=== PATIENT | male | born 1960 | race Hispanic/Latino ===

== ENCOUNTER 2020-09-29 16:01 | Inpatient (IN) | payer OTHER, SELFPAY ==
[2020-09-29] MEDS ORDERED: Dextrose 5% in Water 1,000 ML IV PRN (20:34)
[2020-09-29] MEDS ORDERED: Dextrose 50% Abboject 50 ML SYRINGE SLOW IVP PRN (20:34)
[2020-09-29] MEDS ORDERED: Ondansetron ODT 4 MG TAB SL PRN (21:00)
[2020-09-29] MEDS ORDERED: Ondansetron PF 4 MG/2 ML Vial IVP PRN ×2 (21:00→21:03)
[2020-09-29] MEDS ORDERED: Acetaminophen 325 MG TAB PO PRN ×2 (21:00→21:03)
[2020-09-29] MEDS ORDERED: Ondansetron ODT 4 MG TAB PO PRN (21:03)
[2020-09-29] MEDS ORDERED: Acetaminophen 650 MG Suppository PR PRN (21:03)
[2020-09-29] MEDS ORDERED: Sodium Chloride 0.9% 1,000 ML IV SCH ×2 (21:15)
[2020-09-29] MEDS: Sodium Chloride 0.9% 1,000 ML IV SCH ×2 (22:28→23:48)
[2020-09-29 23:17] VITALS: BMI 20.2
[2020-09-30] MEDS ORDERED: VANCOMYCIN 1.25 GM/250 ML BAG 1.25 GM in Premix Bag 1 BAG IVPB SCH (01:00)
[2020-09-30 02:56] LABS: SARS-CoV-2 NAA Rapid Test Not Detected (NotDetected)
[2020-09-30] MEDS ORDERED: Piperacillin/Tazobactam 3.375 GM in Sodium Chloride 0.9% 100 ML IVPB SCH (06:00)
[2020-09-30 07:49] LABS: #Eosinphils 0.1 thou/uL (0.0-0.7); #Lymphocytes 1.1 thou/uL (1.20-3.40); #Monocytes 0.7 thou/uL (0.11-0.59); #Neutrophils 7.5 thou/uL (1.40-6.50); %Basophils 0.1 % (0.0-1.0); %Eosinophils 0.6 % (0.0-10.0); %Lymphocytes 11.5 % (21.0-51.0); %Monocytes 7.3 % (0.0-10.0); %Neutrophils 80.4 % (42.0-75.0); Hemoglobin 12.2 g/dL (14.0-18.0); Mean Corpuscular Hemoglobin 28.8 pg (27.0-31.0); Mean Corpuscular Volume 89.9 fL (78.0-98.0); Mean Platelet Volume 8.6 fL (7.4-10.4); Platelet Count 236 thou/uL (130-400); RBC Distribution Width 11.4 % (11.5-14.5); Red Blood Cell (RBC) Count 4.23 mill/uL (4.70-6.10); White Blood Cell (WBC) Count 9.3 thou/uL (4.8-10.8)
[2020-09-30 08:00] LABS: Hemoglobin A1c Greater than 14.0 % (4.0-6.0)
[2020-09-30 08:01] LABS: ALT (SGPT) 9 U/L (8-55); AST (SGOT) 15 U/L (5-34); Albumin 2.8 g/dL (3.5-5.0); Alkaline Phosphatase 132 U/L (40-110); Anion Gap 19 mmol/L (10-20); BUN (Urea Nitrogen) 12 mg/dL (8.4-25.7); Bilirubin, Total 0.2 mg/dL (0.2-1.2); Calc. Creatinine Clearance 81 mL/min (70-130); Carbon Dioxide 14 mmol/L (22-29); Cardiac Risk 3.5 (Less than 4.5); Chloride 103 mmol/L (98-107); Cholesterol 117 mg/dl (< 200 Desired); Globulin 3.3 g/dL (2.4-3.5); Glucose 219 mg/dL (70-105); HDL Cholesterol 33 mg/dL (>60 Neg Risk); LDL Cholesterol, Calculated 63 mg/dL; Potassium 4.2 mmol/L (3.5-5.1); Protein, Total 6.1 g/dL (6.0-8.3); Sodium 132 mmol/L (136-145); Triglycerides 106 mg/dL (Less than 150)
[2020-09-30] MEDS: Enoxaparin Sodium 40 MG/0.4 ML SYRINGE SC SCH (08:29)
[2020-09-30] MEDS ORDERED: traMADol HCl 50 MG TAB PO PRN (09:42)
[2020-09-30] MEDS ORDERED: Iopamidol 370 76% 50 ML VIAL FS ONE (11:56)
[2020-09-30] MEDS ORDERED: Lidocaine 1% (PF) 30 ML VIAL ONE (13:11)
[2020-09-30] MEDS ORDERED: Heparin 10,000 UNITS/ 10 ML VIAL ONE (13:45)
[2020-09-30] MEDS: Vancomycin HCl 750 MG in Sodium Chloride 0.9% 250 ML 250 ML IVPB SCH ×2 (15:15→23:17)
[2020-09-30] MEDS ORDERED: Vancomycin 1 GM in Premix Bag 1 BAG IVPB SCH (15:30)
[2020-09-30] MEDS: Cefepime 2 GM in Sodium Chloride 0.9% 100 ML IVPB SCH (21:00)
[2020-09-30] MEDS: Lantus 1000 UNITS/10 ML VIAL SC SCH (21:00)
[2020-09-30] MEDS: HumaLOG 300 UNITS/3 ML VIAL SC PRN (21:01)
[2020-10-01] MEDS: HumaLOG 300 UNITS/3 ML VIAL SC PRN ×4 (05:53→20:10)
[2020-10-01 06:27] LABS: #Eosinphils 0.1 thou/uL (0.0-0.7); #Lymphocytes 1.9 thou/uL (1.20-3.40); #Monocytes 1.2 thou/uL (0.11-0.59); #Neutrophils 7.3 thou/uL (1.40-6.50); %Eosinophils 0.7 % (0.0-10.0); %Lymphocytes 18.3 % (21.0-51.0); %Monocytes 11.2 % (0.0-10.0); %Neutrophils 69.8 % (42.0-75.0); Hemoglobin 11.6 g/dL (14.0-18.0); Mean Corpuscular HGB CONC 33.4 g/dL (32.0-36.0); Mean Corpuscular Hemoglobin 29.2 pg (27.0-31.0); Mean Corpuscular Volume 87.5 fL (78.0-98.0); Mean Platelet Volume 6.5 fL (7.4-10.4); Platelet Count 325 thou/uL (130-400); RBC Distribution Width 11.2 % (11.5-14.5); Red Blood Cell (RBC) Count 3.98 mill/uL (4.70-6.10); White Blood Cell (WBC) Count 10.5 thou/uL (4.8-10.8)
[2020-10-01 06:48] LABS: Anion Gap 13 mmol/L (10-20); BUN (Urea Nitrogen) 12 mg/dL (8.4-25.7); Calc. Creatinine Clearance 79 mL/min (70-130); Calcium 8.4 mg/dL (7.8-10.44); Carbon Dioxide 21 mmol/L (22-29); Chloride 101 mmol/L (98-107); Glucose 245 mg/dL (70-105); Potassium 3.6 mmol/L (3.5-5.1); Sodium 131 mmol/L (136-145)
[2020-10-01] MEDS: Enoxaparin Sodium 40 MG/0.4 ML SYRINGE SC SCH (08:47)
[2020-10-01] MEDS: Cefepime 2 GM in Sodium Chloride 0.9% 100 ML IVPB SCH ×2 (08:48→20:08)
[2020-10-01] MEDS: Lantus 1000 UNITS/10 ML VIAL SC SCH ×2 (08:51→20:09)
[2020-10-01 12:24] LABS: Vancomycin, Trough 9.6 ug/mL
[2020-10-01] MEDS: Vancomycin HCl 750 MG in Sodium Chloride 0.9% 250 ML 250 ML IVPB SCH (12:53)
[2020-10-01] MEDS: VANCOMYCIN 1.25 GM/250 ML BAG 1.25 GM in Premix Bag 1 BAG IVPB SCH (13:26)
[2020-10-02] MEDS: VANCOMYCIN 1.25 GM/250 ML BAG 1.25 GM in Premix Bag 1 BAG IVPB SCH ×2 (01:05→12:31)
[2020-10-02] MEDS: HumaLOG 300 UNITS/3 ML VIAL SC PRN ×4 (05:26→20:30)
[2020-10-02 06:03] LABS: #Eosinphils 0.1 thou/uL (0.0-0.7); #Lymphocytes 2.1 thou/uL (1.20-3.40); #Monocytes 1.1 thou/uL (0.11-0.59); #Neutrophils 6.5 thou/uL (1.40-6.50); %Basophils 0.1 % (0.0-1.0); %Eosinophils 0.7 % (0.0-10.0); %Lymphocytes 21.1 % (21.0-51.0); %Monocytes 11.5 % (0.0-10.0); %Neutrophils 66.5 % (42.0-75.0); Hemoglobin 11.6 g/dL (14.0-18.0); Mean Corpuscular Hemoglobin 28.8 pg (27.0-31.0); Mean Corpuscular Volume 87.4 fL (78.0-98.0); Mean Platelet Volume 6.5 fL (7.4-10.4); Platelet Count 334 thou/uL (130-400); RBC Distribution Width 11.4 % (11.5-14.5); Red Blood Cell (RBC) Count 4.02 mill/uL (4.70-6.10); White Blood Cell (WBC) Count 9.7 thou/uL (4.8-10.8)
[2020-10-02 06:07] LABS: INR-International Normal Ratio 0.9; Prothrombin Time 12.8 sec (12.0-14.7)
[2020-10-02 06:22] LABS: Anion Gap 12 mmol/L (10-20); BUN (Urea Nitrogen) 9 mg/dL (8.4-25.7); CRP (Inflammatory) 8.31 mg/dL (= or < 0.5); Calc. Creatinine Clearance 92 mL/min (70-130); Calcium 8.7 mg/dL (7.8-10.44); Carbon Dioxide 24 mmol/L (22-29); Chloride 103 mmol/L (98-107); Glucose 150 mg/dL (70-105); Potassium 3.3 mmol/L (3.5-5.1); Sodium 136 mmol/L (136-145)
[2020-10-02] MEDS ORDERED: Potassium Chloride 20 MEQ TAB PO SCH (07:30)
[2020-10-02] MEDS: Enoxaparin Sodium 40 MG/0.4 ML SYRINGE SC SCH (08:44)
[2020-10-02] MEDS: Cefepime 2 GM in Sodium Chloride 0.9% 100 ML IVPB SCH ×2 (08:44→20:29)
[2020-10-02] MEDS: Lantus 1000 UNITS/10 ML VIAL SC SCH (20:29)
[2020-10-03 00:40] LABS: Vancomycin, Trough 14.2 ug/mL
[2020-10-03] MEDS: Vancomycin 1.5 GRAM/300 ML BAG 1.5 GM in Premix Bag 1 BAG IVPB SCH ×2 (01:09→13:10)
[2020-10-03] MEDS ORDERED: Fentanyl 100 MCG/2 ML VIAL ONE (06:21)
[2020-10-03 06:53] LABS: Anion Gap 13 mmol/L (10-20); BUN (Urea Nitrogen) 10 mg/dL (8.4-25.7); Calc. Creatinine Clearance 90 mL/min (70-130); Calcium 8.7 mg/dL (7.8-10.44); Carbon Dioxide 23 mmol/L (22-29); Chloride 104 mmol/L (98-107); Glucose 111 mg/dL (70-105); Magnesium 1.7 mg/dL (1.6-2.6); Potassium 3.8 mmol/L (3.5-5.1); Sodium 136 mmol/L (136-145)
[2020-10-03] MEDS ORDERED: PROPOFOL 200 MG/20 ML VIAL ONE (07:35)
[2020-10-03] MEDS ORDERED: ePHEDrine Sulfate 50 MG/10 ML VIAL ONE (07:35)
[2020-10-03] MEDS ORDERED: Lidocaine 1% PF 5 ML VIAL ONE (07:35)
[2020-10-03] MEDS ORDERED: Ondansetron HCl/PF 4 MG/2 ML Vial IVP PRN (08:19)
[2020-10-03] MEDS ORDERED: Promethazine HCl 25 MG/ML VIAL IM PRN (08:19)
[2020-10-03] MEDS ORDERED: Promethazine HCl 25 MG/ML VIAL SLOW IVP PRN (08:19)
[2020-10-03] MEDS: Cefepime 2 GM in Sodium Chloride 0.9% 100 ML IVPB SCH ×2 (09:25→21:02)
[2020-10-03] MEDS: tiZANidine HCl 4 MG TAB PO SCH ×2 (11:26→21:02)
[2020-10-03] MEDS: HYDROcodone/Acetaminophen 5/325 mg Tablet PO PRN (11:26)
[2020-10-03] MEDS: Lidocaine 5% Patch TD SCH (12:19)
[2020-10-03] MEDS: Sodium Chloride 0.9% 1,000 ML IV SCH ×2 (13:10→16:48)
[2020-10-03] MEDS: HumaLOG 300 UNITS/3 ML VIAL SC PRN ×2 (16:54→21:14)
[2020-10-03] MEDS ORDERED: Polyethylene Glycol 3350 17 GM Packet PO PRN (18:41)
[2020-10-03] MEDS: metFORMIN 500 MG TAB PO SCH (21:02)
[2020-10-03] MEDS: Transdermal Patch Removal TOP SCH (21:05)
[2020-10-03] MEDS: Senokot S 8.6-50 MG TAB PO PRN (21:13)
[2020-10-03] MEDS: Lantus 1000 UNITS/10 ML VIAL SC SCH (21:14)
[2020-10-04] MEDS: Vancomycin 1.5 GRAM/300 ML BAG 1.5 GM in Premix Bag 1 BAG IVPB SCH ×2 (01:28→14:12)
[2020-10-04] MEDS: Sodium Chloride 0.9% 1,000 ML IV SCH ×3 (05:21→21:01)
[2020-10-04 07:10] LABS: #Eosinphils 0.1 thou/uL (0.0-0.7); #Lymphocytes 1.7 thou/uL (1.20-3.40); #Monocytes 0.8 thou/uL (0.11-0.59); #Neutrophils 5.5 thou/uL (1.40-6.50); %Basophils 0.1 % (0.0-1.0); %Eosinophils 1.7 % (0.0-10.0); %Lymphocytes 20.9 % (21.0-51.0); %Monocytes 9.8 % (0.0-10.0); %Neutrophils 67.5 % (42.0-75.0); Hemoglobin 10.7 g/dL (14.0-18.0); Mean Corpuscular HGB CONC 32.6 g/dL (32.0-36.0); Mean Corpuscular Hemoglobin 28.7 pg (27.0-31.0); Mean Platelet Volume 7.6 fL (7.4-10.4); Platelet Count 322 thou/uL (130-400); RBC Distribution Width 11.4 % (11.5-14.5); Red Blood Cell (RBC) Count 3.72 mill/uL (4.70-6.10); White Blood Cell (WBC) Count 8.1 thou/uL (4.8-10.8)
[2020-10-04 07:27] LABS: Anion Gap 13 mmol/L (10-20); BUN (Urea Nitrogen) 12 mg/dL (8.4-25.7); CRP (Inflammatory) 6.26 mg/dL (= or < 0.5); Calc. Creatinine Clearance 96 mL/min (70-130); Calcium 8.6 mg/dL (7.8-10.44); Carbon Dioxide 21 mmol/L (22-29); Chloride 105 mmol/L (98-107); Glucose 86 mg/dL (70-105); Potassium 4.1 mmol/L (3.5-5.1); Sodium 135 mmol/L (136-145)
[2020-10-04] MEDS: Cefepime 2 GM in Sodium Chloride 0.9% 100 ML IVPB SCH ×2 (07:59→20:57)
[2020-10-04] MEDS: tiZANidine HCl 4 MG TAB PO SCH ×2 (07:59→20:56)
[2020-10-04] MEDS: metFORMIN 500 MG TAB PO SCH ×2 (07:59→20:57)
[2020-10-04] MEDS: Lidocaine 5% Patch TD SCH (14:12)
[2020-10-04] MEDS: HumaLOG 300 UNITS/3 ML VIAL SC PRN (16:13)
[2020-10-04] MEDS: HYDROcodone/Acetaminophen 5/325 mg Tablet PO PRN (20:56)
[2020-10-04] MEDS: Transdermal Patch Removal TOP SCH (21:00)
[2020-10-04] MEDS: Lantus 1000 UNITS/10 ML VIAL SC SCH (21:02)
[2020-10-05] MEDS: Vancomycin 1.5 GRAM/300 ML BAG 1.5 GM in Premix Bag 1 BAG IVPB SCH ×2 (00:37→12:58)
[2020-10-05] MEDS: HumaLOG 300 UNITS/3 ML VIAL SC PRN ×4 (05:28→20:35)
[2020-10-05] MEDS: Cefepime 2 GM in Sodium Chloride 0.9% 100 ML IVPB SCH ×2 (08:25→20:30)
[2020-10-05] MEDS: Senokot S 8.6-50 MG TAB PO PRN ×2 (08:25→20:31)
[2020-10-05] MEDS: metFORMIN 500 MG TAB PO SCH ×2 (08:25→20:31)
[2020-10-05] MEDS: Lidocaine 5% Patch TD SCH (08:26)
[2020-10-05] MEDS: tiZANidine HCl 4 MG TAB PO SCH ×2 (08:26→20:32)
[2020-10-05] MEDS: Sodium Chloride 0.9% 1,000 ML IV SCH ×2 (08:26→20:30)
[2020-10-05 12:36] LABS: Vancomycin, Trough 20.7 ug/mL
[2020-10-05] MEDS: HYDROcodone/Acetaminophen 5/325 mg Tablet PO PRN (20:31)
[2020-10-05] MEDS: Transdermal Patch Removal TOP SCH (20:32)
[2020-10-05] MEDS: Lantus 1000 UNITS/10 ML VIAL SC SCH (20:34)
[2020-10-06] MEDS: Vancomycin 1.5 GRAM/300 ML BAG 1.5 GM in Premix Bag 1 BAG IVPB SCH ×2 (00:16→13:57)
[2020-10-06] MEDS: Sodium Chloride 0.9% 1,000 ML IV SCH ×2 (05:31→18:59)
[2020-10-06] MEDS: Cefepime 2 GM in Sodium Chloride 0.9% 100 ML IVPB SCH (09:13)
[2020-10-06] MEDS: Lidocaine 5% Patch TD SCH (09:13)
[2020-10-06] MEDS: tiZANidine HCl 4 MG TAB PO SCH (09:14)
[2020-10-06] MEDS: metFORMIN 500 MG TAB PO SCH (09:14)
[2020-10-06] MEDS: HumaLOG 300 UNITS/3 ML VIAL SC PRN (09:17)
[2020-10-06 16:28] VITALS: BP 165/84; TEMP 98.4
== END 2020-10-06 20:40 | disposition home or self-care (01) | DRG 854 ==
LOC: T4-A 20:27 → OBSVTOIN 20:34
PROVIDERS: ADMIT Internal Medicine; ATTEND Family Medicine
PROC: 047Q3ZZ Dilation of Left Anterior Tibial Artery, Percutaneous Approach (ICD-10-PCS; 2020-09-29)
PROC: B41D1ZZ Fluoroscopy of Aorta and Bilateral Lower Extremity Arteries using Low Osmolar Contrast (ICD-10-PCS; 2020-09-29)
PROC: 0Y6N0ZB Detachment at Left Foot, Partial 2nd Ray, Open Approach (ICD-10-PCS; principal; 2020-10-03)
PROC: 0Y6N0Z9 Detachment at Left Foot, Partial 1st Ray, Open Approach (ICD-10-PCS; 2020-10-03)
PROC: 0Y6N0ZC Detachment at Left Foot, Partial 3rd Ray, Open Approach (ICD-10-PCS; 2020-10-03)
PROC: 0Y6N0ZD Detachment at Left Foot, Partial 4th Ray, Open Approach (ICD-10-PCS; 2020-10-03)
PROC: 0Y6N0ZF Detachment at Left Foot, Partial 5th Ray, Open Approach (ICD-10-PCS; 2020-10-03)
DX: A40.1 Sepsis due to streptococcus, group B (principal); E11.52 Type 2 diabetes mellitus with diabetic peripheral angiopathy with gangrene; L03.116 Cellulitis of left lower limb; I70.262 Atherosclerosis of native arteries of extremities with gangrene, left leg; Z20.822 Contact with and (suspected) exposure to COVID-19; E11.65 Type 2 diabetes mellitus with hyperglycemia; E11.628 Type 2 diabetes mellitus with other skin complications; E78.5 Hyperlipidemia, unspecified; E11.42 Type 2 diabetes mellitus with diabetic polyneuropathy; Z89.412 Acquired absence of left great toe; Z89.611 Acquired absence of right leg above knee; Z79.84 Long term (current) use of oral hypoglycemic drugs; Z83.3 Family history of diabetes mellitus; Z79.899 Other long term (current) drug therapy
CPT/HCPCS: 0240U; 36415; 36416; 37228; 75774; 76942; 80048; 80053; 80061; 80202; 83036; 83735; 85025; 85347; 85610; 85652; 86140; 87040; 88305; 93926; J0692; J1644; J1650; J1815; J2001; J2543; J2704; J3010; J3370; J3490; J7050; Q9967

== ENCOUNTER 2021-01-31 18:54 | Inpatient (IN) | payer OTHER ==
[2021-01-31 20:54] LABS: #Basophils 0.1 thou/uL (0.0-0.2); #Eosinphils 0.1 thou/uL (0.0-0.7); #Lymphocytes 1.6 thou/uL (1.20-3.40); #Monocytes 1.1 thou/uL (0.11-0.59); %Basophils 0.4 % (0.0-1.0); %Eosinophils 0.5 % (0.0-10.0); %Lymphocytes 9.6 % (21.0-51.0); %Monocytes 6.4 % (0.0-10.0); %Neutrophils 83.1 % (42.0-75.0); Hemoglobin 13.1 g/dL (14.0-18.0); Mean Corpuscular HGB CONC 33.7 g/dL (32.0-36.0); Platelet Count 338 thou/uL (130-400); RBC Distribution Width 13.2 % (11.5-14.5); Red Blood Cell (RBC) Count 4.52 mill/uL (4.70-6.10); White Blood Cell (WBC) Count 16.8 thou/uL (4.8-10.8)
[2021-01-31 21:21] LABS: ALT (SGPT) 11 U/L (8-55); AST (SGOT) 19 U/L (5-34); Albumin 3.3 g/dL (3.5-5.0); Alkaline Phosphatase 165 U/L (40-110); Anion Gap 18 mmol/L (10-20); BUN (Urea Nitrogen) 19 mg/dL (8.4-25.7); Bilirubin, Total 0.2 mg/dL (0.2-1.2); Calc. Creatinine Clearance 0 mL/min (70-130); Calcium 9.3 mg/dL (7.8-10.44); Carbon Dioxide 22 mmol/L (22-29); Chloride 92 mmol/L (98-107); Globulin 4.4 g/dL (2.4-3.5); Glucose 439 mg/dL (70-105); Protein, Total 7.7 g/dL (6.0-8.3); Sodium 127 mmol/L (136-145)
[2021-01-31] MEDS ORDERED: Piperacillin/Tazobactam 3.375 GM VIAL ONE (21:36)
[2021-01-31] MEDS ORDERED: VANCOMYCIN 1.75 GM/350 ML BAG 1.75 GM in Premix Bag 1 BAG IVPB SCH (22:45)
[2021-01-31 23:07] LABS: SARS-CoV-2 NAA Rapid Test Not Detected (NotDetected)
[2021-01-31] MEDS ORDERED: Acetaminophen 325 MG TAB PO PRN (23:30)
[2021-01-31] MEDS ORDERED: Ondansetron PF 4 MG/2 ML Vial IVP PRN (23:30)
[2021-01-31] MEDS ORDERED: Ondansetron ODT 4 MG TAB SL PRN (23:30)
[2021-01-31 23:55] VITALS: BMI 24.5
[2021-01-31] MEDS ORDERED: Vancomycin 1 GM in Premix Bag 1 BAG IVPB SCH (23:59)
[2021-02-01] MEDS: Sodium Chloride 0.9% 1,000 ML IV SCH ×2 (00:42→06:31)
[2021-02-01] MEDS ORDERED: Dextrose 5% in Water 1,000 ML IV PRN (01:26)
[2021-02-01] MEDS ORDERED: Dextrose 50% Abboject 50 ML SYRINGE SLOW IVP PRN (01:26)
[2021-02-01] MEDS: HumaLOG 300 UNITS/3 ML VIAL SC PRN ×3 (01:52→22:23)
[2021-02-01] MEDS ORDERED: Piperacillin/Tazobactam 3.375 GM in Sodium Chloride 0.9% 100 ML IVPB SCH ×2 (02:00→06:00)
[2021-02-01] MEDS ORDERED: Calcium Carbonate 500 MG ChewTAB PO PRN (07:28)
[2021-02-01] MEDS ORDERED: Senokot S 8.6-50 MG TAB PO PRN (07:28)
[2021-02-01] MEDS ORDERED: Acetaminophen 325 MG TAB PO PRN (07:28)
[2021-02-01] MEDS ORDERED: Bisacodyl 5 MG TAB PO PRN (07:28)
[2021-02-01] MEDS ORDERED: Ondansetron ODT 4 MG TAB PO PRN (07:28)
[2021-02-01] MEDS ORDERED: Ondansetron PF 4 MG/2 ML Vial IVP PRN ×2 (07:28→23:30)
[2021-02-01] MEDS ORDERED: Guaifenesin DM 100-10/5 ML UDCUP PO PRN (07:28)
[2021-02-01] MEDS ORDERED: HYDROcodone/Acetaminophen 5/325 mg Tablet PO PRN (07:28)
[2021-02-01] MEDS ORDERED: Hydrocerin (Eucerin) Cream 120 gm Jar TOP PRN (07:30)
[2021-02-01] MEDS ORDERED: Loratadine 10 MG TAB PO PRN (07:30)
[2021-02-01] MEDS ORDERED: hydrALAZINE 20 MG/ML VIAL SLOW IVP PRN (07:30)
[2021-02-01] MEDS ORDERED: Cepastat Lozenges 1 LOZ PO PRN (07:30)
[2021-02-01] MEDS ORDERED: Sodium Chloride 0.65% Nasal 44 ML BOT EA NARE PRN (07:30)
[2021-02-01] MEDS ORDERED: Enoxaparin Sodium 40 MG/0.4 ML SYRINGE SC SCH (09:00)
[2021-02-01] MEDS: Famotidine 20 MG TAB PO SCH ×2 (10:58→20:45)
[2021-02-01] MEDS ORDERED: Sodium Chloride 0.9% 1,000 ML IV SCH ×2 (12:00→20:30)
[2021-02-01 14:12] LABS: Bacteria/HPF None Seen HPF (None Seen); Bilirubin Negative (Negative); Blood, Urine Negative (Negative); Clarity Clear (Clear); Glucose, Urine (Dipstick) Greater than 1000 mg/dL (Negative); Ketone, Urine 40 mg/dL (Negative); Leukocyte Negative Leu/uL (Negative); Nitrite Negative (Negative); Protein, Urine (Dipstick) 30 mg/dL (Neg-Trace); Specific Gravity, Urine 1.032 (1.002-1.036); Squamous Epithelial None Seen HPF (0-3); Urobilinogen Normal mg/dL (Less than 2); WBC/HPF 0-3 HPF (0-3); pH, Urine 5.5 (5.0-9.0)
[2021-02-01 14:19] LABS: Sperm/HPF 4+ HPF (None Seen)
[2021-02-01] MEDS: Vancomycin 1 GM in Premix Bag 1 BAG IVPB SCH (15:16)
[2021-02-01] MEDS: Piperacillin/Tazobactam 3.375 GM in Sodium Chloride 0.9% 100 ML IVPB SCH ×2 (15:22→20:46)
[2021-02-01] MEDS: Gabapentin 300 MG CAP PO SCH ×2 (15:27→20:45)
[2021-02-01] MEDS ORDERED: Fentanyl 100 MCG/2 ML VIAL ONE ×3 (17:55→19:47)
[2021-02-01] MEDS ORDERED: Phenylephrine 10 MG/ML VIAL ONE (17:56)
[2021-02-01] MEDS ORDERED: traMADol HCl 50 MG TAB PO PRN (18:22)
[2021-02-01] MEDS ORDERED: PHENYLEPHRINE-NS 100 MCG/ML 10 ML SYRINGE ONE (18:25)
[2021-02-01] MEDS ORDERED: Ondansetron PF 4 MG/2 ML Vial ONE (18:25)
[2021-02-01] MEDS ORDERED: Lidocaine 1% PF 5 ML VIAL ONE (18:25)
[2021-02-01] MEDS ORDERED: PROPOFOL 200 MG/20 ML VIAL ONE (18:25)
[2021-02-01] MEDS ORDERED: diphenhydrAMINE 50 MG/ML VIAL ONE (18:25)
[2021-02-01] MEDS ORDERED: PACU-Morphine 4MG/ML VIAL SLOW IVP PRN (18:48)
[2021-02-01] MEDS ORDERED: Promethazine HCl 25 MG/ML VIAL IVPB PRN (18:48)
[2021-02-01] MEDS ORDERED: Promethazine HCl 25 MG/ML VIAL IM PRN ×2 (18:48→23:30)
[2021-02-01] MEDS ORDERED: Meperidine HCl/PF 25 MG/ML VIAL SLOW IVP PRN (18:48)
[2021-02-01] MEDS: Enoxaparin Sodium 40 MG/0.4 ML SYRINGE SC SCH (20:45)
[2021-02-01] MEDS: Atorvastatin Calcium 20 MG TAB PO SCH (20:45)
[2021-02-01] MEDS: NPH, Human Insulin Isophane 300 UNIT/3 ML VIAL SC SCH (22:22)
[2021-02-01] MEDS ORDERED: diphenhydrAMINE 25 MG CAP PO PRN (23:30)
[2021-02-01] MEDS ORDERED: diphenhydrAMINE 50 MG/ML VIAL IM/IV PRN (23:30)
[2021-02-01] MEDS ORDERED: Fentanyl CADD 100 ML IVPB SCH (23:30)
[2021-02-01] MEDS ORDERED: Zolpidem Tartrate 5 MG TAB PO PRN (23:30)
[2021-02-02] MEDS: Vancomycin 1 GM in Premix Bag 1 BAG IVPB SCH (02:29)
[2021-02-02] MEDS: Piperacillin/Tazobactam 3.375 GM in Sodium Chloride 0.9% 100 ML IVPB SCH (05:29)
[2021-02-02] MEDS: HumaLOG 300 UNITS/3 ML VIAL SC PRN ×4 (05:30→20:46)
[2021-02-02 06:39] LABS: #Eosinphils 0.1 thou/uL (0.0-0.7); #Lymphocytes 2.2 thou/uL (1.20-3.40); #Monocytes 0.8 thou/uL (0.11-0.59); #Neutrophils 9.7 thou/uL (1.40-6.50); %Basophils 0.4 % (0.0-1.0); %Eosinophils 0.9 % (0.0-10.0); %Lymphocytes 17.1 % (21.0-51.0); %Monocytes 6.2 % (0.0-10.0); %Neutrophils 75.5 % (42.0-75.0); Hemoglobin 10.6 g/dL (14.0-18.0); Mean Corpuscular HGB CONC 33.1 g/dL (32.0-36.0); Mean Corpuscular Hemoglobin 28.8 pg (27.0-31.0); Mean Platelet Volume 6.8 fL (7.4-10.4); Platelet Count 359 thou/uL (130-400); RBC Distribution Width 13.1 % (11.5-14.5); Red Blood Cell (RBC) Count 3.68 mill/uL (4.70-6.10); White Blood Cell (WBC) Count 12.8 thou/uL (4.8-10.8)
[2021-02-02 07:04] LABS: ALT (SGPT) 9 U/L (8-55); AST (SGOT) 23 U/L (5-34); Albumin 2.6 g/dL (3.5-5.0); Alkaline Phosphatase 112 U/L (40-110); Anion Gap 10 mmol/L (10-20); BUN (Urea Nitrogen) 11 mg/dL (8.4-25.7); Bilirubin, Total 0.2 mg/dL (0.2-1.2); CRP (Inflammatory) 13.87 mg/dL (= or < 0.5); Calc. Creatinine Clearance 87 mL/min (70-130); Calcium 8.2 mg/dL (7.8-10.44); Carbon Dioxide 27 mmol/L (22-29); Chloride 98 mmol/L (98-107); Globulin 3.5 g/dL (2.4-3.5); Glucose 265 mg/dL (70-105); Magnesium 1.7 mg/dL (1.6-2.6); Phosphorus 2.3 mg/dL (2.3-4.7); Protein, Total 6.1 g/dL (6.0-8.3); Sodium 131 mmol/L (136-145)
[2021-02-02] MEDS: Aspirin Chewable 81 MG TAB PO SCH (09:36)
[2021-02-02] MEDS: Famotidine 20 MG TAB PO SCH ×2 (09:37→20:41)
[2021-02-02] MEDS: Gabapentin 300 MG CAP PO SCH ×3 (09:37→20:42)
[2021-02-02] MEDS: NPH, Human Insulin Isophane 300 UNIT/3 ML VIAL SC SCH (09:38)
[2021-02-02] MEDS: Atorvastatin Calcium 20 MG TAB PO SCH (20:42)
[2021-02-02] MEDS: Enoxaparin Sodium 40 MG/0.4 ML SYRINGE SC SCH (20:43)
[2021-02-02] MEDS ORDERED: NPH, Human Insulin Isophane 300 UNIT/3 ML VIAL SC SCH (21:00)
[2021-02-03] MEDS: HumaLOG 300 UNITS/3 ML VIAL SC PRN ×4 (05:29→21:39)
[2021-02-03] MEDS: Famotidine 20 MG TAB PO SCH ×2 (09:35→21:40)
[2021-02-03] MEDS: Gabapentin 300 MG CAP PO SCH ×3 (09:35→21:40)
[2021-02-03] MEDS: Aspirin Chewable 81 MG TAB PO SCH (09:35)
[2021-02-03] MEDS: NPH, Human Insulin Isophane 300 UNIT/3 ML VIAL SC SCH ×2 (09:37→21:39)
[2021-02-03] MEDS ORDERED: HYDROcodone/Acetaminophen 5/325 mg Tablet PO PRN ×2 (10:49→10:50)
[2021-02-03] MEDS ORDERED: traMADol HCl 50 MG TAB PO PRN (10:52)
[2021-02-03] MEDS ORDERED: Ibuprofen 600 MG TAB PO PRN (15:21)
[2021-02-03] MEDS ORDERED: Acetaminophen 500 MG TAB PO PRN (15:21)
[2021-02-03] MEDS: traMADol HCl 50 MG TAB PO PRN (15:47)
[2021-02-03] MEDS: Acetaminophen 500 MG TAB PO SCH ×2 (17:55→21:39)
[2021-02-03] MEDS: Atorvastatin Calcium 20 MG TAB PO SCH (21:40)
[2021-02-03] MEDS: Enoxaparin Sodium 40 MG/0.4 ML SYRINGE SC SCH (21:40)
[2021-02-04] MEDS ORDERED: Morphine 2 MG/ML VIAL SLOW IVP PRN (07:57)
[2021-02-04] MEDS: Acetaminophen 500 MG TAB PO SCH ×4 (09:00→21:14)
[2021-02-04] MEDS: Gabapentin 300 MG CAP PO SCH ×3 (09:01→21:12)
[2021-02-04] MEDS: Famotidine 20 MG TAB PO SCH ×2 (09:02→21:12)
[2021-02-04] MEDS: NPH, Human Insulin Isophane 300 UNIT/3 ML VIAL SC SCH ×2 (09:02→22:13)
[2021-02-04] MEDS: Aspirin Chewable 81 MG TAB PO SCH (09:02)
[2021-02-04] MEDS: HumaLOG 300 UNITS/3 ML VIAL SC PRN ×3 (12:10→21:17)
[2021-02-04] MEDS: Atorvastatin Calcium 20 MG TAB PO SCH (21:11)
[2021-02-04] MEDS: Enoxaparin Sodium 40 MG/0.4 ML SYRINGE SC SCH (21:15)
[2021-02-05] MEDS: traMADol HCl 50 MG TAB PO PRN ×2 (01:04→17:51)
[2021-02-05 06:10] LABS: #Lymphocytes 1.4 thou/uL (1.20-3.40); #Monocytes 0.7 thou/uL (0.11-0.59); #Neutrophils 7.5 thou/uL (1.40-6.50); %Basophils 0.1 % (0.0-1.0); %Eosinophils 0.4 % (0.0-10.0); %Monocytes 6.9 % (0.0-10.0); %Neutrophils 77.6 % (42.0-75.0); Hemoglobin 10.7 g/dL (14.0-18.0); Mean Corpuscular HGB CONC 33.7 g/dL (32.0-36.0); Mean Corpuscular Hemoglobin 29.5 pg (27.0-31.0); Mean Corpuscular Volume 87.4 fL (78.0-98.0); Mean Platelet Volume 6.3 fL (7.4-10.4); Platelet Count 388 thou/uL (130-400); Red Blood Cell (RBC) Count 3.62 mill/uL (4.70-6.10); White Blood Cell (WBC) Count 9.6 thou/uL (4.8-10.8)
[2021-02-05 06:36] LABS: Anion Gap 11 mmol/L (10-20); BUN (Urea Nitrogen) 17 mg/dL (8.4-25.7); Calc. Creatinine Clearance 94 mL/min (70-130); Carbon Dioxide 31 mmol/L (22-29); Chloride 101 mmol/L (98-107); Glucose 73 mg/dL (70-105); Magnesium 1.8 mg/dL (1.6-2.6); Phosphorus 4.1 mg/dL (2.3-4.7); Potassium 3.6 mmol/L (3.5-5.1); Sodium 139 mmol/L (136-145)
[2021-02-05] MEDS: Acetaminophen 500 MG TAB PO SCH ×4 (10:26→20:55)
[2021-02-05] MEDS: Famotidine 20 MG TAB PO SCH ×2 (10:27→20:57)
[2021-02-05] MEDS: Gabapentin 300 MG CAP PO SCH ×3 (10:27→20:57)
[2021-02-05] MEDS: NPH, Human Insulin Isophane 300 UNIT/3 ML VIAL SC SCH ×2 (10:28→21:01)
[2021-02-05] MEDS: Aspirin Chewable 81 MG TAB PO SCH (10:28)
[2021-02-05] MEDS: HumaLOG 300 UNITS/3 ML VIAL SC PRN ×2 (12:28→17:47)
[2021-02-05] MEDS: Atorvastatin Calcium 20 MG TAB PO SCH (20:57)
[2021-02-05] MEDS: Enoxaparin Sodium 40 MG/0.4 ML SYRINGE SC SCH (20:57)
[2021-02-06] MEDS: HumaLOG 300 UNITS/3 ML VIAL SC PRN ×2 (05:35→13:32)
[2021-02-06] MEDS: Famotidine 20 MG TAB PO SCH (08:12)
[2021-02-06] MEDS: Aspirin Chewable 81 MG TAB PO SCH (08:12)
[2021-02-06] MEDS: Gabapentin 300 MG CAP PO SCH ×2 (08:13→15:21)
[2021-02-06] MEDS: Acetaminophen 500 MG TAB PO SCH ×2 (08:13→13:39)
[2021-02-06] MEDS: NPH, Human Insulin Isophane 300 UNIT/3 ML VIAL SC SCH (10:54)
[2021-02-06 12:26] VITALS: BP 118/77; TEMP 98.3
[2021-02-06] MEDS: traMADol HCl 50 MG TAB PO PRN (13:40)
== END 2021-02-06 14:40 | disposition swing bed (61) | DRG 854 ==
LOC: ERS 18:54 → SURG A 22:33
PROVIDERS: ADMIT Internal Medicine Geriatric Medicine; ATTEND Internal Medicine
PROC: 0Y6J0Z1 Detachment at Left Lower Leg, High, Open Approach (ICD-10-PCS; principal; 2021-02-01)
DX: A41.9 Sepsis, unspecified organism (principal); E11.52 Type 2 diabetes mellitus with diabetic peripheral angiopathy with gangrene; L03.116 Cellulitis of left lower limb; E87.1 Hypo-osmolality and hyponatremia; E11.65 Type 2 diabetes mellitus with hyperglycemia; K21.9 Gastro-esophageal reflux disease without esophagitis; E78.5 Hyperlipidemia, unspecified; E11.42 Type 2 diabetes mellitus with diabetic polyneuropathy; Z20.822 Contact with and (suspected) exposure to COVID-19; Z89.432 Acquired absence of left foot; Z79.84 Long term (current) use of oral hypoglycemic drugs
CPT/HCPCS: 36415; 36416; 80048; 80053; 81001; 83605; 83735; 84100; 85025; 86140; 87040; 87070; 87077; 87186; 87205; 88307; 96365; 96366; J1200; J1650; J1815; J2370; J2405; J2543; J2704; J3010; J3370; J3490; J7050; U0002; U0005

== ENCOUNTER 2021-02-11 20:40 | Inpatient (IN) | payer OTHER ==
[2021-02-11] MEDS ORDERED: Bisacodyl 10 MG SUPP PR PRN (23:35)
[2021-02-11] MEDS ORDERED: HYDROcodone/Acetaminophen 10/325 mg Tablet PO PRN (23:35)
[2021-02-11] MEDS ORDERED: Bisacodyl 5 MG TAB PO PRN (23:35)
[2021-02-11] MEDS ORDERED: Ondansetron PF 4 MG/2 ML Vial IVP PRN (23:35)
[2021-02-11] MEDS ORDERED: HYDROcodone/Acetaminophen 5/325 mg Tablet PO PRN (23:35)
[2021-02-11] MEDS ORDERED: Acetaminophen 325 MG TAB PO PRN (23:35)
[2021-02-11] MEDS ORDERED: Dextrose 5% in Water 1,000 ML IV PRN (23:45)
[2021-02-11] MEDS ORDERED: Furosemide 40 MG/4 ML VIAL SLOW IVP SCH (23:45)
[2021-02-11] MEDS ORDERED: Dextrose 50% Abboject 50 ML SYRINGE SLOW IVP PRN (23:45)
[2021-02-11] MEDS ORDERED: hydrALAZINE 20 MG/ML VIAL SLOW IVP PRN (23:47)
[2021-02-11] MEDS ORDERED: Melatonin 3 MG TAB PO PRN (23:55)
[2021-02-12 00:48] LABS: Troponin I 1.068 ng/mL (< 0.028)
[2021-02-12 04:31] LABS: #Eosinphils 0.1 thou/uL (0.0-0.7); #Lymphocytes 1.4 thou/uL (1.20-3.40); #Monocytes 0.8 thou/uL (0.11-0.59); #Neutrophils 5.9 thou/uL (1.40-6.50); %Basophils 0.5 % (0.0-1.0); %Eosinophils 0.7 % (0.0-10.0); %Lymphocytes 16.7 % (21.0-51.0); %Monocytes 10.1 % (0.0-10.0); %Neutrophils 72.1 % (42.0-75.0); Hemoglobin 7.4 g/dL (14.0-18.0); Mean Corpuscular HGB CONC 33.8 g/dL (32.0-36.0); Mean Corpuscular Hemoglobin 29.8 pg (27.0-31.0); Mean Corpuscular Volume 88.2 fL (78.0-98.0); Mean Platelet Volume 6.4 fL (7.4-10.4); Platelet Count 527 thou/uL (130-400); RBC Distribution Width 13.8 % (11.5-14.5); Red Blood Cell (RBC) Count 2.48 mill/uL (4.70-6.10); White Blood Cell (WBC) Count 8.1 thou/uL (4.8-10.8)
[2021-02-12 04:33] LABS: Hemoglobin A1c 13.7 % (4.0-6.0)
[2021-02-12] MEDS: Furosemide 40 MG/4 ML VIAL SLOW IVP SCH ×2 (06:31→14:18)
[2021-02-12] MEDS: Chloraseptic Spray 180 ml Bottle PO PRN ×2 (06:31→09:45)
[2021-02-12] MEDS ORDERED: Non-Formulary Item 1 EACH (Metformin Hcl [Metformin Hcl] 1,000 MG Tablet) PO SCH (09:00)
[2021-02-12] MEDS: Aspirin Chewable 81 MG TAB PO SCH (09:22)
[2021-02-12] MEDS: Famotidine 20 MG TAB PO SCH ×2 (09:22→21:03)
[2021-02-12] MEDS: Gabapentin 300 MG CAP PO SCH ×3 (09:23→21:03)
[2021-02-12 19:23] LABS: Hemoglobin 9.2 g/dL (14.0-18.0)
[2021-02-12] MEDS ORDERED: Atorvastatin Calcium 20 MG TAB PO SCH (21:00)
[2021-02-12] MEDS: Atorvastatin Calcium 40 MG TAB PO SCH (21:03)
[2021-02-12] MEDS: Insulin Regular 300 UNITS/3 ML VIAL SC PRN (21:03)
[2021-02-12] MEDS: Lantus 1000 UNITS/10 ML VIAL SC SCH (21:04)
[2021-02-12] MEDS ORDERED: Enoxaparin Sodium 60 MG/0.6 ML SYRINGE SC SCH (23:45)
[2021-02-13 04:48] LABS: #Eosinphils 0.1 thou/uL (0.0-0.7); #Lymphocytes 1.6 thou/uL (1.20-3.40); #Monocytes 1.1 thou/uL (0.11-0.59); #Neutrophils 6.8 thou/uL (1.40-6.50); %Basophils 0.3 % (0.0-1.0); %Eosinophils 0.7 % (0.0-10.0); %Lymphocytes 16.4 % (21.0-51.0); %Monocytes 11.2 % (0.0-10.0); %Neutrophils 71.4 % (42.0-75.0); Hemoglobin 9.1 g/dL (14.0-18.0); Mean Corpuscular HGB CONC 33.1 g/dL (32.0-36.0); Mean Corpuscular Hemoglobin 29.5 pg (27.0-31.0); Mean Corpuscular Volume 89.2 fL (78.0-98.0); Mean Platelet Volume 6.4 fL (7.4-10.4); Platelet Count 615 thou/uL (130-400); RBC Distribution Width 13.6 % (11.5-14.5); Red Blood Cell (RBC) Count 3.08 mill/uL (4.70-6.10); White Blood Cell (WBC) Count 9.6 thou/uL (4.8-10.8)
[2021-02-13 05:01] LABS: ALT (SGPT) 55 U/L (8-55); AST (SGOT) 35 U/L (5-34); Alkaline Phosphatase 280 U/L (40-110); Anion Gap 12 mmol/L (10-20); BUN (Urea Nitrogen) 34 mg/dL (8.4-25.7); Bilirubin, Total 0.4 mg/dL (0.2-1.2); Calc. Creatinine Clearance 67 mL/min (70-130); Carbon Dioxide 30 mmol/L (22-29); Chloride 97 mmol/L (98-107); Globulin 4.1 g/dL (2.4-3.5); Glucose 124 mg/dL (70-105); Potassium 5.1 mmol/L (3.5-5.1); Protein, Total 7.1 g/dL (6.0-8.3); Sodium 134 mmol/L (136-145)
[2021-02-13] MEDS: Furosemide 40 MG/4 ML VIAL SLOW IVP SCH ×2 (05:39→15:37)
[2021-02-13] MEDS: Gabapentin 300 MG CAP PO SCH ×3 (09:03→21:10)
[2021-02-13] MEDS: Aspirin Chewable 81 MG TAB PO SCH (09:03)
[2021-02-13] MEDS: Famotidine 20 MG TAB PO SCH ×2 (09:03→21:10)
[2021-02-13] MEDS: Carvedilol 3.125 MG TAB PO SCH ×2 (09:04→15:37)
[2021-02-13] MEDS: Enoxaparin Sodium 60 MG/0.6 ML SYRINGE SC SCH ×2 (09:04→21:11)
[2021-02-13] MEDS: HumaLOG 300 UNITS/3 ML VIAL SC PRN (17:24)
[2021-02-13] MEDS: Atorvastatin Calcium 40 MG TAB PO SCH (21:10)
[2021-02-13] MEDS: Lantus 1000 UNITS/10 ML VIAL SC SCH (21:12)
[2021-02-14 05:03] LABS: Iron 17 ug/dL (65-175); Iron Binding Capacity, Total 230 mcg/dL (261-462)
[2021-02-14 05:26] LABS: Ferritin 287.72 ng/mL (22-322)
[2021-02-14] MEDS: Furosemide 40 MG/4 ML VIAL SLOW IVP SCH ×2 (05:47→14:25)
[2021-02-14] MEDS: Gabapentin 300 MG CAP PO SCH ×3 (08:31→20:56)
[2021-02-14] MEDS: Famotidine 20 MG TAB PO SCH ×2 (08:31→20:56)
[2021-02-14 12:38] LABS: Anion Gap 10 mmol/L (10-20); BUN (Urea Nitrogen) 34 mg/dL (8.4-25.7); Calc. Creatinine Clearance 79 mL/min (70-130); Calcium 8.7 mg/dL (7.8-10.44); Carbon Dioxide 32 mmol/L (22-29); Chloride 96 mmol/L (98-107); Glucose 150 mg/dL (70-105); Potassium 4.2 mmol/L (3.5-5.1); Sodium 134 mmol/L (136-145)
[2021-02-14] MEDS: Aspirin Chewable 81 MG TAB PO SCH (14:25)
[2021-02-14] MEDS: Enoxaparin Sodium 60 MG/0.6 ML SYRINGE SC SCH ×2 (14:26→20:56)
[2021-02-14] MEDS: Carvedilol 3.125 MG TAB PO SCH ×2 (14:27)
[2021-02-14] MEDS: Insulin Regular 300 UNITS/3 ML VIAL SC PRN (17:08)
[2021-02-14] MEDS ORDERED: Senokot 8.6 MG TAB PO SCH (20:00)
[2021-02-14] MEDS: Lantus 1000 UNITS/10 ML VIAL SC SCH (20:55)
[2021-02-14] MEDS: Atorvastatin Calcium 40 MG TAB PO SCH (20:56)
[2021-02-15] MEDS ORDERED: Senokot 8.6 MG TAB PO PRN (00:15)
[2021-02-15 05:00] LABS: #Eosinphils 0.1 thou/uL (0.0-0.7); #Lymphocytes 1.7 thou/uL (1.20-3.40); #Monocytes 1.1 thou/uL (0.11-0.59); #Neutrophils 7.9 thou/uL (1.40-6.50); %Basophils 0.3 % (0.0-1.0); %Eosinophils 1.1 % (0.0-10.0); %Lymphocytes 15.9 % (21.0-51.0); %Monocytes 10.3 % (0.0-10.0); %Neutrophils 72.5 % (42.0-75.0); Hemoglobin 9.1 g/dL (14.0-18.0); Mean Corpuscular HGB CONC 31.7 g/dL (32.0-36.0); Mean Corpuscular Hemoglobin 29.1 pg (27.0-31.0); Mean Corpuscular Volume 91.7 fL (78.0-98.0); Mean Platelet Volume 6.4 fL (7.4-10.4); Platelet Count 564 thou/uL (130-400); RBC Distribution Width 14.1 % (11.5-14.5); Red Blood Cell (RBC) Count 3.13 mill/uL (4.70-6.10); White Blood Cell (WBC) Count 10.8 thou/uL (4.8-10.8)
[2021-02-15 05:21] LABS: Anion Gap 11 mmol/L (10-20); BUN (Urea Nitrogen) 39 mg/dL (8.4-25.7); Calc. Creatinine Clearance 68 mL/min (70-130); Carbon Dioxide 34 mmol/L (23-31); Chloride 97 mmol/L (98-107); Glucose 242 mg/dL (80-115); Potassium 4.7 mmol/L (3.5-5.1); Sodium 137 mmol/L (136-145)
[2021-02-15] MEDS: Furosemide 40 MG/4 ML VIAL SLOW IVP SCH ×2 (05:28→14:07)
[2021-02-15] MEDS: Famotidine 20 MG TAB PO SCH ×2 (08:28→20:48)
[2021-02-15] MEDS: Gabapentin 300 MG CAP PO SCH ×3 (08:28→20:48)
[2021-02-15] MEDS: Aspirin Chewable 81 MG TAB PO SCH (08:28)
[2021-02-15] MEDS: Enoxaparin Sodium 60 MG/0.6 ML SYRINGE SC SCH ×2 (11:55→20:48)
[2021-02-15] MEDS: Carvedilol 3.125 MG TAB PO SCH ×2 (11:55→16:18)
[2021-02-15] MEDS ORDERED: Regadenoson 0.4 MG/5 ML SYRINGE ONE (13:16)
[2021-02-15] MEDS ORDERED: Communication Order-Pharmacy FS SCH (14:00)
[2021-02-15] MEDS: Insulin Regular 300 UNITS/3 ML VIAL SC PRN ×2 (18:28→21:41)
[2021-02-15] MEDS: HumaLOG 300 UNITS/3 ML VIAL SC PRN (18:36)
[2021-02-15] MEDS: Atorvastatin Calcium 40 MG TAB PO SCH (20:48)
[2021-02-15] MEDS: Lantus 1000 UNITS/10 ML VIAL SC SCH (21:41)
[2021-02-16] MEDS: Furosemide 40 MG/4 ML VIAL SLOW IVP SCH ×2 (05:31→15:40)
[2021-02-16] MEDS: Carvedilol 3.125 MG TAB PO SCH ×2 (06:21→16:11)
[2021-02-16] MEDS ORDERED: Heparin 10,000 UNITS/ 10 ML VIAL ONE (06:49)
[2021-02-16] MEDS ORDERED: Verapamil 5 MG/2 ML VIAL ONE (06:49)
[2021-02-16] MEDS ORDERED: Nitroglycerin 100MG/250ML BOT 250 ML ONE (06:49)
[2021-02-16] MEDS ORDERED: Acetaminophen/Codeine 30-300mg Tablet PO PRN ×2 (08:15)
[2021-02-16] MEDS ORDERED: Nitroglycerin 0.4 MG TAB (25 Tab Bottle) SL PRN (08:15)
[2021-02-16] MEDS ORDERED: Sodium Chloride 0.9% 200 ML IV PRN (08:15)
[2021-02-16] MEDS: Gabapentin 300 MG CAP PO SCH ×3 (08:32→20:23)
[2021-02-16] MEDS: Aspirin Chewable 81 MG TAB PO SCH (08:32)
[2021-02-16] MEDS: Famotidine 20 MG TAB PO SCH ×2 (08:33→20:23)
[2021-02-16] MEDS ORDERED: Iopamidol 370 76% 100 ML VIAL ONE (08:48)
[2021-02-16 15:45] VITALS: BMI 27.3
[2021-02-16] MEDS: HumaLOG 300 UNITS/3 ML VIAL SC PRN ×2 (17:16→20:30)
[2021-02-16] MEDS: Atorvastatin Calcium 40 MG TAB PO SCH (20:23)
[2021-02-17] MEDS: HumaLOG 300 UNITS/3 ML VIAL SC PRN ×3 (05:35→17:53)
[2021-02-17] MEDS: Furosemide 40 MG/4 ML VIAL SLOW IVP SCH ×2 (05:35→14:46)
[2021-02-17] MEDS: Famotidine 20 MG TAB PO SCH (08:54)
[2021-02-17] MEDS: Aspirin Chewable 81 MG TAB PO SCH (08:54)
[2021-02-17] MEDS: Gabapentin 300 MG CAP PO SCH ×2 (08:54→14:45)
[2021-02-17] MEDS: Carvedilol 3.125 MG TAB PO SCH ×2 (08:54→17:53)
[2021-02-17] MEDS ORDERED: metFORMIN 500 MG TAB PO SCH (17:00)
[2021-02-17 19:16] LABS: Bacteria/HPF None Seen HPF (None Seen); Bilirubin Negative (Negative); Blood, Urine Negative (Negative); Clarity Clear (Clear); Glucose, Urine (Dipstick) 30 mg/dL (Negative); Ketone, Urine Negative (Negative); Leukocyte Negative Leu/uL (Negative); Nitrite Negative (Negative); Protein, Urine (Dipstick) Negative (Neg-Trace); RBC/HPF 0-3 HPF (0-3); Specific Gravity, Urine 1.016 (1.002-1.036); Squamous Epithelial 0-3 HPF (0-3); Urobilinogen Normal mg/dL (Less than 2); WBC/HPF 0-3 HPF (0-3)
[2021-02-17 19:20] LABS: Urine Culture Reflex No No
[2021-02-17 19:54] VITALS: BP 127/64; TEMP 98
[2021-02-17] MEDS ORDERED: Tamsulosin HCl 0.4 MG CAP PO SCH (21:00)
[2021-02-18] MEDS ORDERED: Ferrous Sulfate 325 MG TAB PO SCH (08:00)
== END 2021-02-17 20:55 | disposition swing bed (61) | DRG 287 ==
LOC: 2NO 20:40
PROVIDERS: ADMIT Internal Medicine; ATTEND Internal Medicine
PROC: 30233N1 Transfusion of Nonautologous Red Blood Cells into Peripheral Vein, Percutaneous Approach (ICD-10-PCS; 2021-02-12)
PROC: 4A023N7 Measurement of Cardiac Sampling and Pressure, Left Heart, Percutaneous Approach (ICD-10-PCS; principal; 2021-02-16)
PROC: B2111ZZ Fluoroscopy of Multiple Coronary Arteries using Low Osmolar Contrast (ICD-10-PCS; 2021-02-16)
DX: I50.21 Acute systolic (congestive) heart failure (principal); I42.9 Cardiomyopathy, unspecified; I24.8 Other forms of acute ischemic heart disease; E78.5 Hyperlipidemia, unspecified; K76.0 Fatty (change of) liver, not elsewhere classified; E11.65 Type 2 diabetes mellitus with hyperglycemia; D69.6 Thrombocytopenia, unspecified; E11.51 Type 2 diabetes mellitus with diabetic peripheral angiopathy without gangrene; R79.1 Abnormal coagulation profile; I25.10 Atherosclerotic heart disease of native coronary artery without angina pectoris; E11.42 Type 2 diabetes mellitus with diabetic polyneuropathy; D64.9 Anemia, unspecified; R10.2 Pelvic and perineal pain; Z89.512 Acquired absence of left leg below knee; Z79.4 Long term (current) use of insulin; Z79.899 Other long term (current) drug therapy; Z79.82 Long term (current) use of aspirin; Z89.611 Acquired absence of right leg above knee
CPT/HCPCS: 36415; 36416; 36430; 71045; 78452; 80048; 80053; 81001; 82607; 82728; 82746; 83036; 83540; 83550; 83605; 85025; 86850; 86900; 86901; 93017; 93306; 93458; A9500; J1644; J1650; J1815; J1940; J2785; P9016; Q9967

== ENCOUNTER 2021-03-08 05:02 | Inpatient (IN) | payer OTHER ==
[2021-03-08] MEDS ORDERED: Morphine 2 MG/ML VIAL SLOW IVP SCH (21:30)
[2021-03-08] MEDS ORDERED: Dextrose 50% Abboject 50 ML SYRINGE SLOW IVP PRN ×2 (22:20→23:47)
[2021-03-08] MEDS ORDERED: Dextrose 5% in Water 1,000 ML IV PRN ×2 (22:20→23:47)
[2021-03-08] MEDS ORDERED: Dextrose 50% Abboject 50 ML SYRINGE ONE (22:24)
[2021-03-08 23:21] LABS: #Lymphocytes 0.9 thou/uL (1.20-3.40); #Monocytes 0.6 thou/uL (0.11-0.59); #Neutrophils 9.6 thou/uL (1.40-6.50); %Basophils 0.2 % (0.0-1.0); %Eosinophils 0.3 % (0.0-10.0); %Monocytes 5.2 % (0.0-10.0); %Neutrophils 86.3 % (42.0-75.0); Hemoglobin 9.4 g/dL (14.0-18.0); Mean Corpuscular HGB CONC 30.1 g/dL (32.0-36.0); Mean Platelet Volume 7.3 fL (7.4-10.4); Platelet Count 246 thou/uL (130-400); RBC Distribution Width 13.8 % (11.5-14.5); Red Blood Cell (RBC) Count 3.36 mill/uL (4.70-6.10); White Blood Cell (WBC) Count 11.1 thou/uL (4.8-10.8)
[2021-03-08] MEDS ORDERED: Ondansetron ODT 4 MG TAB PO PRN (23:31)
[2021-03-08] MEDS ORDERED: Acetaminophen 650 MG Suppository PR PRN (23:31)
[2021-03-08] MEDS ORDERED: Ondansetron PF 4 MG/2 ML Vial IVP PRN (23:31)
[2021-03-08 23:41] LABS: ALT (SGPT) 39 U/L (8-55); AST (SGOT) 30 U/L (5-34); Albumin 2.9 g/dL (3.4-4.8); Alkaline Phosphatase 156 U/L (40-110); BUN (Urea Nitrogen) 44 mg/dL (8.4-25.7); Bilirubin, Total 0.3 mg/dL (0.2-1.2); Calc. Creatinine Clearance 106 mL/min (70-130); Calcium 9.2 mg/dL (7.8-10.44); Globulin 3.5 g/dL (2.4-3.5); Glucose 148 mg/dL (80-115); Protein, Total 6.4 g/dL (5.8-8.1)
[2021-03-08 23:50] LABS: Anion Gap 16 mmol/L (10-20); Chloride 83 mmol/L (98-107); Potassium 4.4 mmol/L (3.5-5.1); Sodium 141 mmol/L (136-145)
[2021-03-08 23:58] LABS: Carbon Dioxide 46 mmol/L (23-31)
[2021-03-09 00:48] LABS: Actual Bicarbonate (HCO3a) 55.2 mEq/L (22-28); Base Excess (BEa) 26.2 mEq/L (-2.0 to +3.0); Calcium, Ionized (arterial) 1.13 mmol/L (1.12-1.30); Carboxyhemoglobin (COHb) 0.6 gm% (0.0-3.0); Hemoglobin (Hb) 10.2 g/dL (14.0-18.0); Potassium - ABG Lab 4.47 mmol/L (3.70-5.30); pH, Arterial 7.41 (7.35-7.45)
[2021-03-09 00:50] LABS: CO2 Tension 89.9 mmHg (35.0-45.0)
[2021-03-09 00:51] LABS: O2 Tension (PaO2), arterial 45.6 mmHg (> 80.0); Puncture Site RRA
[2021-03-09 00:52] LABS: ALV-art Gradient 127.225 mmHg (0-20)
[2021-03-09] MEDS ORDERED: acetaZOLAMIDE Sodium 250 MG in Sodium Chloride 0.9% 50 ML IVPB SCH (01:50)
[2021-03-09] MEDS ORDERED: Electrolyte Replacement Protocol 1 EACH FS SCH (02:30)
[2021-03-09] MEDS ORDERED: acetaZOLAMIDE Sodium 500 MG in Sodium Chloride 0.9% 50 ML IVPB SCH (02:30)
[2021-03-09 05:36] LABS: #Eosinphils 0.1 thou/uL (0.0-0.7); #Lymphocytes 0.9 thou/uL (1.20-3.40); #Monocytes 0.9 thou/uL (0.11-0.59); #Neutrophils 8.9 thou/uL (1.40-6.50); %Basophils 0.3 % (0.0-1.0); %Eosinophils 0.6 % (0.0-10.0); %Lymphocytes 8.3 % (21.0-51.0); %Monocytes 7.9 % (0.0-10.0); %Neutrophils 82.8 % (42.0-75.0); Hemoglobin 9.4 g/dL (14.0-18.0); Mean Corpuscular HGB CONC 30.1 g/dL (32.0-36.0); Mean Corpuscular Hemoglobin 27.9 pg (27.0-31.0); Mean Corpuscular Volume 92.7 fL (78.0-98.0); Mean Platelet Volume 7.4 fL (7.4-10.4); Platelet Count 256 thou/uL (130-400); RBC Distribution Width 13.8 % (11.5-14.5); Red Blood Cell (RBC) Count 3.35 mill/uL (4.70-6.10); White Blood Cell (WBC) Count 10.8 thou/uL (4.8-10.8)
[2021-03-09 05:57] LABS: BUN (Urea Nitrogen) 42 mg/dL (8.4-25.7); Calc. Creatinine Clearance 113 mL/min (70-130); Calcium 9.2 mg/dL (7.8-10.44); Glucose 192 mg/dL (80-115)
[2021-03-09 06:07] LABS: Anion Gap 13 mmol/L (10-20); Chloride 83 mmol/L (98-107); Sodium 140 mmol/L (136-145)
[2021-03-09 06:11] LABS: Carbon Dioxide 48 mmol/L (23-31)
[2021-03-09] MEDS ORDERED: Magnesium 2 GM/50 ML 2 GM in Premix Bag 1 BAG IVPB SCH (07:00)
[2021-03-09] MEDS: Aspirin Chewable 81 MG TAB PO SCH (08:15)
[2021-03-09] MEDS: Enoxaparin Sodium 40 MG/0.4 ML SYRINGE SC SCH (08:15)
[2021-03-09] MEDS: Furosemide 40 MG/4 ML VIAL SLOW IVP SCH (08:15)
[2021-03-09 09:46] LABS: Actual Bicarbonate (HCO3a) 55.5 mEq/L (22-28); Base Excess (BEa) 26.4 mEq/L (-2.0 to +3.0); Calcium, Ionized (arterial) 1.16 mmol/L (1.12-1.30); Carboxyhemoglobin (COHb) 0.4 gm% (0.0-3.0); Hemoglobin (Hb) 10.6 g/dL (14.0-18.0); O2 Tension (PaO2), arterial 72.6 mmHg (> 80.0); Potassium - ABG Lab 3.68 mmol/L (3.70-5.30); pH, Arterial 7.41 (7.35-7.45)
[2021-03-09 09:50] LABS: CO2 Tension 88.8 mmHg (35.0-45.0)
[2021-03-09 09:51] LABS: Puncture Site LBA
[2021-03-09] MEDS ORDERED: Senokot S 8.6-50 MG TAB PO SCH (14:15)
[2021-03-09] MEDS ORDERED: Polyethylene Glycol 3350 17 GM Packet PO SCH (14:15)
[2021-03-09] MEDS ORDERED: Bisacodyl 10 MG SUPP PR SCH (14:15)
[2021-03-09 15:16] LABS: SARS-CoV-2 PCR by NAA Not Detected (NotDetected)
[2021-03-09] MEDS: Carvedilol 3.125 MG TAB PO SCH (16:36)
[2021-03-09] MEDS ORDERED: Carvedilol 3.125 MG TAB PO SCH (17:00)
[2021-03-09] MEDS: Senokot S 8.6-50 MG TAB PO SCH (20:05)
[2021-03-09] MEDS: Bisacodyl 10 MG SUPP PR SCH (20:07)
[2021-03-09] MEDS: acetaZOLAMIDE Sodium 500 mg Vial IVP SCH (20:58)
[2021-03-10] MEDS: Acetaminophen 325 MG TAB PO PRN (02:32)
[2021-03-10 06:08] LABS: Free T4 (Free Thyroxine) 0.84 ng/dL (0.70-1.48); Thyroid Stimulating Hormone 3.4285 uIU/mL (0.35-4.94)
[2021-03-10] MEDS: acetaZOLAMIDE Sodium 500 mg Vial IVP SCH (08:48)
[2021-03-10] MEDS: Enoxaparin Sodium 40 MG/0.4 ML SYRINGE SC SCH (08:49)
[2021-03-10] MEDS: Carvedilol 3.125 MG TAB PO SCH ×2 (08:49→17:30)
[2021-03-10] MEDS: Polyethylene Glycol 3350 17 GM Packet PO SCH (08:49)
[2021-03-10] MEDS: Aspirin Chewable 81 MG TAB PO SCH (08:49)
[2021-03-10] MEDS: Senokot S 8.6-50 MG TAB PO SCH ×2 (08:49→21:02)
[2021-03-10 10:10] LABS: Phosphorus 4.2 mg/dL (2.3-4.7)
[2021-03-10 10:12] LABS: BUN (Urea Nitrogen) 28 mg/dL (8.4-25.7); Calc. Creatinine Clearance 99 mL/min (70-130); Calcium 9.1 mg/dL (7.8-10.44); Glucose 139 mg/dL (80-115); Magnesium 1.7 mg/dL (1.6-2.6)
[2021-03-10 10:21] LABS: Anion Gap 11 mmol/L (10-20); Carbon Dioxide 39 mmol/L (23-31); Chloride 90 mmol/L (98-107); Potassium 3.4 mmol/L (3.5-5.1); Sodium 137 mmol/L (136-145)
[2021-03-10] MEDS: Furosemide 40 MG/4 ML VIAL SLOW IVP SCH (11:10)
[2021-03-10] MEDS: HumaLOG 300 UNITS/3 ML VIAL SC PRN (12:36)
[2021-03-10] MEDS ORDERED: Potassium Chloride 20 MEQ TAB PO SCH (13:00)
[2021-03-10] MEDS ORDERED: Magnesium 2 GM/50 ML 2 GM in Premix Bag 1 BAG IVPB SCH (13:00)
[2021-03-10] MEDS: Lisinopril 5 MG TAB PO SCH (17:30)
[2021-03-10] MEDS: Bisacodyl 10 MG SUPP PR SCH (21:01)
[2021-03-11 06:02] LABS: Anion Gap 14 mmol/L (10-20); BUN (Urea Nitrogen) 23 mg/dL (8.4-25.7); Calc. Creatinine Clearance 98 mL/min (70-130); Calcium 8.2 mg/dL (7.8-10.44); Carbon Dioxide 28 mmol/L (23-31); Chloride 95 mmol/L (98-107); Glucose 217 mg/dL (80-115); Potassium 3.6 mmol/L (3.5-5.1); Sodium 133 mmol/L (136-145)
[2021-03-11] MEDS: HumaLOG 300 UNITS/3 ML VIAL SC PRN ×3 (06:46→16:46)
[2021-03-11] MEDS: Senokot S 8.6-50 MG TAB PO SCH ×2 (09:32→20:48)
[2021-03-11] MEDS: Polyethylene Glycol 3350 17 GM Packet PO SCH (09:32)
[2021-03-11] MEDS: Aspirin Chewable 81 MG TAB PO SCH (09:32)
[2021-03-11] MEDS: Enoxaparin Sodium 40 MG/0.4 ML SYRINGE SC SCH (09:32)
[2021-03-11] MEDS: Lisinopril 5 MG TAB PO SCH ×2 (09:32→20:47)
[2021-03-11] MEDS: Carvedilol 3.125 MG TAB PO SCH ×2 (09:33→16:38)
[2021-03-11] MEDS: Acetaminophen 325 MG TAB PO PRN (09:43)
[2021-03-11] MEDS: Furosemide 40 MG/4 ML VIAL SLOW IVP SCH (10:21)
[2021-03-11] MEDS: Bisacodyl 10 MG SUPP PR SCH (20:47)
[2021-03-11] MEDS: Atorvastatin Calcium 40 MG TAB PO SCH (20:47)
[2021-03-12 05:32] LABS: Anion Gap 13 mmol/L (10-20); BUN (Urea Nitrogen) 18 mg/dL (8.4-25.7); Calc. Creatinine Clearance 105 mL/min (70-130); Calcium 8.3 mg/dL (7.8-10.44); Carbon Dioxide 30 mmol/L (23-31); Chloride 98 mmol/L (98-107); Glucose 160 mg/dL (80-115); Potassium 3.7 mmol/L (3.5-5.1); Sodium 137 mmol/L (136-145)
[2021-03-12] MEDS: Furosemide 40 MG/4 ML VIAL SLOW IVP SCH (09:12)
[2021-03-12] MEDS: Aspirin Chewable 81 MG TAB PO SCH (09:12)
[2021-03-12] MEDS: Carvedilol 3.125 MG TAB PO SCH ×2 (09:12→16:35)
[2021-03-12] MEDS: Senokot S 8.6-50 MG TAB PO SCH ×2 (09:12→21:12)
[2021-03-12] MEDS: Enoxaparin Sodium 40 MG/0.4 ML SYRINGE SC SCH (09:12)
[2021-03-12] MEDS: Polyethylene Glycol 3350 17 GM Packet PO SCH (09:13)
[2021-03-12] MEDS: Lisinopril 5 MG TAB PO SCH ×2 (09:13→21:12)
[2021-03-12] MEDS: HumaLOG 300 UNITS/3 ML VIAL SC PRN ×3 (11:44→21:13)
[2021-03-12] MEDS: Atorvastatin Calcium 40 MG TAB PO SCH (21:10)
[2021-03-12] MEDS: Bisacodyl 10 MG SUPP PR SCH (21:12)
[2021-03-13 05:51] LABS: #Eosinphils 0.1 thou/uL (0.0-0.7); #Lymphocytes 1.4 thou/uL (1.20-3.40); #Monocytes 0.8 thou/uL (0.11-0.59); #Neutrophils 7.2 thou/uL (1.40-6.50); %Basophils 0.3 % (0.0-1.0); %Eosinophils 0.9 % (0.0-10.0); %Lymphocytes 14.2 % (21.0-51.0); %Monocytes 8.7 % (0.0-10.0); %Neutrophils 75.8 % (42.0-75.0); Hemoglobin 9.5 g/dL (14.0-18.0); Mean Corpuscular HGB CONC 31.7 g/dL (32.0-36.0); Mean Corpuscular Hemoglobin 27.5 pg (27.0-31.0); Mean Corpuscular Volume 86.7 fL (78.0-98.0); Mean Platelet Volume 6.9 fL (7.4-10.4); Platelet Count 305 thou/uL (130-400); RBC Distribution Width 13.8 % (11.5-14.5); Red Blood Cell (RBC) Count 3.47 mill/uL (4.70-6.10); White Blood Cell (WBC) Count 9.5 thou/uL (4.8-10.8)
[2021-03-13 06:08] LABS: Anion Gap 11 mmol/L (10-20); BUN (Urea Nitrogen) 19 mg/dL (8.4-25.7); Calc. Creatinine Clearance 91 mL/min (70-130); Carbon Dioxide 32 mmol/L (23-31); Chloride 97 mmol/L (98-107); Glucose 256 mg/dL (80-115); Potassium 4.2 mmol/L (3.5-5.1); Sodium 136 mmol/L (136-145)
[2021-03-13] MEDS: HumaLOG 300 UNITS/3 ML VIAL SC PRN ×4 (06:17→20:34)
[2021-03-13] MEDS: Aspirin Chewable 81 MG TAB PO SCH (08:58)
[2021-03-13] MEDS: Lisinopril 5 MG TAB PO SCH ×2 (08:58→20:36)
[2021-03-13] MEDS: Senokot S 8.6-50 MG TAB PO SCH ×2 (08:58→20:34)
[2021-03-13] MEDS: Furosemide 40 MG/4 ML VIAL SLOW IVP SCH (08:59)
[2021-03-13] MEDS: Enoxaparin Sodium 40 MG/0.4 ML SYRINGE SC SCH (08:59)
[2021-03-13] MEDS: Polyethylene Glycol 3350 17 GM Packet PO SCH (08:59)
[2021-03-13] MEDS: Carvedilol 3.125 MG TAB PO SCH ×2 (08:59→17:45)
[2021-03-13] MEDS: Triple Antibiotic Oint 1 GM Packet TOP SCH (17:16)
[2021-03-13] MEDS: Atorvastatin Calcium 40 MG TAB PO SCH (20:34)
[2021-03-13] MEDS: Bisacodyl 10 MG SUPP PR SCH (20:34)
[2021-03-14] MEDS: HumaLOG 300 UNITS/3 ML VIAL SC PRN ×3 (06:11→17:10)
[2021-03-14 07:52] VITALS: BMI 22.0
[2021-03-14] MEDS: Carvedilol 3.125 MG TAB PO SCH (08:41)
[2021-03-14] MEDS: Enoxaparin Sodium 40 MG/0.4 ML SYRINGE SC SCH (08:41)
[2021-03-14] MEDS: Senokot S 8.6-50 MG TAB PO SCH (08:41)
[2021-03-14] MEDS: Aspirin Chewable 81 MG TAB PO SCH (08:41)
[2021-03-14] MEDS: Triple Antibiotic Oint 1 GM Packet TOP SCH (08:41)
[2021-03-14] MEDS: Lisinopril 5 MG TAB PO SCH (08:41)
[2021-03-14] MEDS: Polyethylene Glycol 3350 17 GM Packet PO SCH (08:42)
[2021-03-14] MEDS: Furosemide 40 MG/4 ML VIAL SLOW IVP SCH (08:42)
[2021-03-14 17:19] VITALS: BP 123/83; TEMP 98.2
[2021-03-14] MEDS ORDERED: Lantus 1000 UNITS/10 ML VIAL SC SCH (21:00)
== END 2021-03-14 17:50 | disposition home health service (06) | DRG 291 ==
LOC: 2SE 18:10
PROVIDERS: ADMIT Student in an Organized Health Care Education/Training Program; ATTEND Internal Medicine
DX: I11.0 Hypertensive heart disease with heart failure (principal); I50.23 Acute on chronic systolic (congestive) heart failure; J96.22 Acute and chronic respiratory failure with hypercapnia; J96.01 Acute respiratory failure with hypoxia; E87.4 Mixed disorder of acid-base balance; G93.40 Encephalopathy, unspecified; Z20.822 Contact with and (suspected) exposure to COVID-19; I42.9 Cardiomyopathy, unspecified; K21.9 Gastro-esophageal reflux disease without esophagitis; E78.5 Hyperlipidemia, unspecified; I25.10 Atherosclerotic heart disease of native coronary artery without angina pectoris; D64.9 Anemia, unspecified; K59.00 Constipation, unspecified; E11.51 Type 2 diabetes mellitus with diabetic peripheral angiopathy without gangrene; Z79.4 Long term (current) use of insulin; Z79.84 Long term (current) use of oral hypoglycemic drugs; Z79.82 Long term (current) use of aspirin; Z79.899 Other long term (current) drug therapy; Z89.611 Acquired absence of right leg above knee; Z89.512 Acquired absence of left leg below knee
CPT/HCPCS: 36415; 36416; 36600; 70450; 71045; 74018; 76000; 80048; 80053; 82805; 83605; 83735; 83880; 84100; 84439; 84443; 85025; 94660; J1120; J1650; J1815; J1940; J2270; J3475; J7620; U0003; U0005